=== PATIENT | female | born 1985 | race Caucasian/White ===

== ENCOUNTER → 2019-04-02 08:01 | Outpatient (CLI) | payer OTHER, SELFPAY ==
[2019-04-02 09:57] LABS: Hematocrit 30.1 % (36-46); Hemoglobin 10.3 g/dL (12.0-16.0); Mean Corpuscular HGB Conc 34.2 % (30-36); Mean Corpuscular Hemoglobin 29.7 PG (26-34); Mean Corpuscular Volume 86.9 fL (80-100); Platelet Count 222 X10^3/uL (150-400); Red Blood Cell Count 3.47 X10^6/uL (4.0-5.2); Red Cell Distribution Width 13.8 % (11.6-14.8); White Blood Cell Count 7.7 X10^3/uL (4.5-11.0)
[2019-04-02 11:44] LABS: Glucose Tol Interpretation INTERPRETATION
[2019-04-02 11:45] LABS: Glucose Fasting 69 mg/dL (70-100)
[2019-04-02 11:46] LABS: Glucose 1 Hour 125 mg/dL (70-170)
[2019-04-02 11:47] LABS: Glucose 2 Hour 91 mg/dL (70-140)
[2019-04-02 11:48] LABS: Ferritin 6.1 ng/mL (6.27-137)
== END ==
PROVIDERS: Visit Provider Nurse Practitioner Obstetrics & Gynecology
DX: Z34.83 Encounter for supervision of other normal pregnancy, third trimester (principal)
CPT/HCPCS: 36415; 82728; 82951; 82952; 85027

== ENCOUNTER → 2019-05-17 12:00 | Oncology outpatient (ONC) | payer OTHER, SELFPAY ==
[2019-04-19] MEDS: IRON SUCROSE 250 MG in SODIUM CHLORIDE 0.9% 100 ML 225 ML IV (12:19)
[2019-04-19 12:46] VITALS: BP 123/72; PULSE 90; RESP 18; TEMP 36.8; O2SAT 99
[2019-04-26] MEDS: IRON SUCROSE 250 MG in SODIUM CHLORIDE 0.9% 100 ML 225 ML IV (12:27)
[2019-05-03 12:07] VITALS: BP 111/67; PULSE 77; RESP 16; TEMP 36.9; O2SAT 99
[2019-05-03] MEDS: IRON SUCROSE 250 MG in SODIUM CHLORIDE 0.9% 100 ML 225 ML IV (12:16)
[2019-05-17] MEDS: IRON SUCROSE 250 MG in SODIUM CHLORIDE 0.9% 100 ML 225 ML IV (12:05)
[2019-05-17 12:07] VITALS: BP 97/65; PULSE 82; RESP 16; TEMP 37.1
== END ==
PROVIDERS: Visit Provider Nurse Practitioner Obstetrics & Gynecology
DX: O99.013 Anemia complicating pregnancy, third trimester (principal); D50.0 Iron deficiency anemia secondary to blood loss (chronic)
CPT/HCPCS: 96365; J1756

== ENCOUNTER → 2019-06-07 11:31 | Outpatient (ROUT) | payer OTHER, SELFPAY ==
[2019-06-08 12:52] LABS: Strep Grp B PCR NEG for Grp B Strep
== END ==
PROVIDERS: Visit Provider Nurse Practitioner Obstetrics & Gynecology
DX: Z11.2 Encounter for screening for other bacterial diseases (principal); Z34.83 Encounter for supervision of other normal pregnancy, third trimester
CPT/HCPCS: 87653

== ENCOUNTER 2019-07-11 01:43 | Inpatient (IN) | payer OTHER, SELFPAY ==
--- NOTE | 2019-07-11 01:05 | P.HPOB_ITS ---
OB HPI History of Present Condition Chief complaint: LABOR Narrative: Hannah Malcolm is a 33 year old female @ [id number] by LMP and early US presents w/ strong, regular ctx. +FM. No VB or LOF. Has had uncomplicated PN care. Desires low intervention . [facility] Surgical History (Updated 07/11/19 @ 01:10 PST by Linette Devi CNM) History of tonsillectomy (Acute) Social History (Updated 07/11/19 @ 01:11 PST by Linette Devi CNM) marital status: number of children: 3 household members: spouse lives independently: Yes caregiver/support person: No housing: house education level: college occupational status: employed Smoking Status: Never smoker Meds Home Medications and Allergies Home Medications Medication Instructions Recorded Confirmed Type PNV cmb#95-ferrous fumarate-FA 1 tab PO DAILY 07/11/19 07/11/19 History [] Allergies Allergy/AdvReac Type Severity Reaction Status Date / Time No Known Drug Allergies Allergy Verified 05/03/19 13:04 Review of Systems Review of Systems ROS Unobtainable: All systems reviewed & are unremarkable except as noted in HPI and below Exam Vital Signs (past 8 hours): HR-78, BP120/80, T-35.8C temporal Chest Chest: normal inspection of the chest Resp Effort & Inspection: normal respiratory effort Auscultation: clear to auscultation bilaterally Cardio Rate: regular rate Rhythm: regular rhythm Heart Sounds: S1 normal and S2 normal Manual OB Exam: dilated 6, effaced fully and station -2 Presentation: vertex Other: FHR baseline 130bpm, moderate variability, accels present, decels absent. Ctx Q3-4 minutes, lasting 60-100 seconds, moderate to strong. Objective Labs Labs: ABO/Rh- A positive, AB screen-negative, Rubella-immune, RPR-NR, HIV-neg ative, Hep BsAg-NR, Hep C-negative, GC/CT-neg/neg, RlkW3p-0.8, Sequential screen-negative, 2hr gtt-WNL/69/125/91; 06/07/19: GBS-negative; 07/09/19: Hgb- 12.1, Hct-35.4 Assessment and Plan Assessment and Plan Assessment and Plan narrative: A:Term multipara @ 41.2wks Anemia in Active labor Cat I FHR P: Admit, routine orders w/ SL IV, CBC & T&S. Labor support PRN. May switch to intermittent auscultation for FHR monitoring. Anticipate NSVB. Time Spent with Patient Total time spent with greater than 50% in coordination of care (as documented) at patient's floor/unit and/or counseling patient:: 15-24 minutes
[2019-07-11 01:26] LABS: Add Manual Diff / Slide Review NO; Basophils Absolute Auto 100 /uL (0-100); Basophils Percent Auto 0.7 % (0-2); Eosinophils Absolute Auto 100 /uL (0-450); Eosinophils Percent Auto 0.8 % (2-4); Hematocrit 35.8 % (36-46); Hemoglobin 12.1 g/dL (12.0-16.0); Lymphocytes Absolute Auto 2300 /uL (1100-4500); Lymphocytes Percent Auto 19.6 % (25-40); Mean Corpuscular HGB Conc 33.9 % (30-36); Mean Corpuscular Volume 88.5 fL (80-100); Monocytes Absolute Auto 800 /uL (0-900); Monocytes Percent Auto 7.1 % (3-14); Neutrophils Absolute Auto 8600 /uL (1500-7000); Neutrophils Percent Auto 71.8 % (50-75); Platelet Count 227 X10^3/uL (150-400); Red Blood Cell Count 4.04 X10^6/uL (4.0-5.2); Red Cell Distribution Width 14.6 % (11.6-14.8); White Blood Cell Count 11.9 X10^3/uL (4.5-11.0)
[2019-07-11] MEDS: OXYTOCIN PREMIX 30 UNIT/500 ML PLAST..BAG IV (03:57)
[2019-07-11] MEDS: CALCIUM CARBONATE 500 MG TAB 1000 MG PO (03:57)
--- NOTE | 2019-07-11 04:09 | PM.OBPNLAB ---
Date/Time Date Patient Seen: 07/11/19 Time Patient Seen: 04:10 Pain Control Pain control: tolerating well Pelvic Exam Dilation (cm): 8 Effacement (%): 100 Amniotic membrane status: Intact Contractions Date/Time contractions began: Strong, regular ctx since 0000. Cat I FHR tracing on admission, now using intermittent auscultation. Contractions on admission: regular Monitor mode: External Contraction frequency (min): 5 Contraction duration (min): 70 Contraction pattern: Regular Contraction intensity: Moderate Status status: Category l Heart Rate Baseline: 130 Assessment and Plan Assessment: active labor Plan: continuous present management
[2019-07-11 07:32] VITALS: BP 117/65
--- NOTE | 2019-07-11 08:18 | PM.OBPRVD ---
 Events: Meconium Stained Fluid Labor & Delivery Delivery date: 07/11/19 Intrapartal events: None Cervical ripening method: none Induction method: none Delivery augmentation: rupture of membranes Delivery monitor: external FHT Route of delivery: L&D Laceration Description: None Estimated blood loss (mL): 50 Anesthesia type: Other (Nitorus oxide) Narrative: CE @ 0700 was unchanged at 8/100/0 w/ BBOW. Counseled patient on recommendation for labor augmentation and patient consented to AROM. AROM was performed for moderate light meconium stained amniotic fluid. Contractions intensified and patient rapidly progressed to spontaneously bearing down and was presumed to be complete. RT was called to standby for the and was in attendance. NSVB of a viable baby boy w/ no NC and easy delivery of the shoulders. was placed on maternal abdomen for drying and stimulation with spontaneous cry and good tone by 30 seconds. 30 units of pitocin in 500mL LR was started at 375mL for AMTSL. After cessation of pulsation, the cord was double clamped by CNM and cut by FOB. Gentle cord traction led to spontaneous, Schultze delivery of an apparently intact placenta, membranes and 3VC. Fundus immediately firm at umbilicus and bleeding minimal. Vagina and perineum inspected and intact. QBL 50mL. Both mother and baby stable, skin to skin and as I left the room. Baby 1: gender: Male Presentation: vertex position: Right Occiput Anterior Placenta delivery description: Spontaneous cord vessel description: 3 Vessels score (1 min): 9 score (5 min): 9 Plan for aftercare: Routine PP orders w/ anticipated 24 hour stay.
[2019-07-11] MEDS: PRENATAL VIT,CALC/IRON/FOLIC 1 TABLET 1 TAB PO (08:48)
[2019-07-11] MEDS: DOCUSATE 250 MG CAPSULE PO (08:49)
[2019-07-11 09:24] VITALS: TEMP 36.9
[2019-07-11] MEDS: KETOROLAC 30 MG/ML VIAL IV (09:24)
[2019-07-11] MEDS: IBUPROFEN 600 MG TABLET PO (15:46)
[2019-07-12] MEDS: IBUPROFEN 600 MG TABLET PO (06:27)
--- NOTE | 2019-07-12 07:54 | PM.OBDS.1 ---
Discharge Providers Provider Date of admission: 07/11/19 01:43 PDT Discharge Date: 07/12/19 Consults: 07/11/19 08:10 Consult to Ground Services Instructor Routine Comment: Discharge provider: Linette Devi CNM Summary Time Spent with Patient Time attestation: Total time spent providing and/or coordinating discharge services: 25 minutes Objective Labs Result Diagrams: 07/11/19 01:15 PST Exam Vital Signs (past 8 hours): BP 102/62. HR-92, RR-18, T98.7 Narrative Exam Narrative: Relaxed, independently . Ambulating and voiding independently. Pain well controlled w/ PO medication. Tolerating general diet. Denies passing clots. Slept well overnight. Eager for d/c to home. Chest Other: Breasts tender, nipples intact Bimanual Exam- Vagina & Uterus: other (U-1, lochia light, per RN) Discharge Plan Discharge Plan Patient Disposition: Home Discharge Med Rec/Prescriptions Prescriptions: New ibuprofen 600 mg Tablet 600 mg PO Q6HR PRN (Reason: Pain, Mild (1-3)) 14 Days Qty: 40 RF: 0 Discontinued PNV cmb#95-ferrous fumarate-FA [] 28 mg iron- 800 mcg Tablet 1 tab PO DAILY RF: 0 Follow up/Referrals: Linette Devi CNM [[facility] [employer]] - Provider Discharge Instructions Diet: Diet as Tolerated Activity: Pelvic rest x 6 week. Slowly increase activity as tolerated. Skin/Wound/Dressing Care Report to your healthcare provider any signs of infection, such as:: chills, fever, increased pain and unusual redness
[2019-07-12] MEDS: DOCUSATE 250 MG CAPSULE PO (08:20)
[2019-07-12] MEDS: PRENATAL VIT,CALC/IRON/FOLIC 1 TABLET 1 TAB PO (08:20)
[2019-07-12 11:22] VITALS: BP 117/65; TEMP 36.9
== END 2019-07-12 10:55 | disposition home or self-care (01) | DRG 807 ==
PROVIDERS: Admitting Provider Nurse Practitioner Obstetrics & Gynecology; Visit Provider Nurse Practitioner Obstetrics & Gynecology
DX: O48.0 Post-term pregnancy (principal); Z37.0 Single live birth; O77.0 Labor and delivery complicated by meconium in amniotic fluid; Z3A.41 41 weeks gestation of pregnancy; O99.02 Anemia complicating childbirth
CPT/HCPCS: 59050; 85025; 86850; 86900; 86901; G0379; J1885; J2590